=== PATIENT | male | born 1960 | race Caucasian/White ===

== ENCOUNTER 2021-08-17 13:51 | Inpatient (IN) | payer OTHER ==
[2021-08-17] MEDS ORDERED: METHOCARBAMOL 500 MG TABLET PO PRN (14:45)
[2021-08-17] MEDS ORDERED: MAG HYDROX/AL HYDROX/SIMETH 30 ML UNIT-DOSE CUP PO PRN (14:45)
[2021-08-17] MEDS ORDERED: methaDONE HCL 10 MG TABLET (FOR DETOX USE ONLY) PO ONE (14:45)
[2021-08-17] MEDS ORDERED: cloNIDine HCL 0.1 MG TABLET PO PRN (14:45)
[2021-08-17] MEDS ORDERED: ONDANSETRON *ODT* 4 MG TABLET SL PRN (14:45)
[2021-08-17] MEDS ORDERED: MAGNESIUM CITRATE 300 ML BOTTLE PO PRN (14:45)
[2021-08-17] MEDS ORDERED: NICOTINE 10 MG CARTRIDGE (INHALER) IH PRN (14:45)
[2021-08-17] MEDS ORDERED: MAGNESIUM HYDROX 2400MG/30ML ORAL SUSPENSION 30 ML CUP PO PRN (14:45)
[2021-08-17] MEDS ORDERED: chlordiazePOXIDE HCL 25 MG CAPSULE PO PRN (14:45)
[2021-08-17] MEDS ORDERED: ACETAMINOPHEN 325 MG TABLET (FP) PO PRN (14:45)
[2021-08-17] MEDS ORDERED: LOPERAMIDE HCL 2 MG CAPSULE PO PRN (14:45)
[2021-08-17] MEDS ORDERED: DICYCLOMINE HCL 10 MG CAPSULE PO PRN (14:45)
[2021-08-17] MEDS ORDERED: QUEtiapine FUMARATE 100 MG TABLET (FP) PO PRN (14:45)
[2021-08-17] MEDS ORDERED: BISMUTH SUBSALICYLATE 262 MG/15 ML BTL PO PRN (14:45)
[2021-08-17 15:23] VITALS: BMI 29.1
[2021-08-17] MEDS: chlordiazePOXIDE HCL 25 MG CAPSULE PO SCH ×2 (16:40→22:29)
[2021-08-17] MEDS: PRENATAL VITAMINS W/ FOLIC ACID TABLET (FP) PO SCH (16:42)
[2021-08-17] MEDS: NICOTINE 14 MG/24 HOURS TOPICAL PATCH TD SCH (16:43)
[2021-08-17] MEDS: hydrOXYzine PAMOATE 25 MG CAPSULE (FP) PO SCH ×2 (17:44→23:14)
[2021-08-17] MEDS ORDERED: MELATONIN 5 MG TABLETS PO SCH (22:00)
[2021-08-17] MEDS: THIAMINE HCL 100 MG TABLET (FP) PO SCH (22:30)
[2021-08-18] MEDS: BENZOCAINE/MENTHOL (CHLORASEPTIC ) LOZENGE MM PRN ×2 (01:01→11:20)
[2021-08-18] MEDS: chlordiazePOXIDE HCL 25 MG CAPSULE PO SCH (05:41)
[2021-08-18] MEDS: hydrOXYzine PAMOATE 25 MG CAPSULE (FP) PO SCH ×5 (05:42→22:19)
[2021-08-18] MEDS ORDERED: methaDONE HCL 10 MG TABLET (FOR DETOX USE ONLY) ONE (09:20)
[2021-08-18] MEDS: PRENATAL VITAMINS W/ FOLIC ACID TABLET (FP) PO SCH (10:22)
[2021-08-18] MEDS: IBUPROFEN 400 MG TABLET (FP) PO PRN ×2 (10:23→16:31)
[2021-08-18] MEDS: NICOTINE 14 MG/24 HOURS TOPICAL PATCH TD SCH (10:24)
[2021-08-18] MEDS ORDERED: diazePAM 5 MG TABLET PO PRN (10:55)
[2021-08-18] MEDS: diazePAM 5 MG TABLET PO SCH ×3 (11:20→22:20)
[2021-08-18 12:50] LABS: HEMATOCRIT 28.2 % (35.4-49); MCH 25.5 pg (25.7-33.7); MCHC 31.9 g/dl (32.0-35.9); MEAN CELL VOLUME 80.1 fl (80-96); MEAN PLT VOLUME 7.4 fl (7.5-11.1); PLATELET COUNT 323 10^3/uL (134-434); RBC 3.53 M/mm3 (4.00-5.60); RDW 19.5 % (11.9-15.9); WHITE BLOOD COUNT 7.5 K/mm3 (4.0-10.0)
[2021-08-18 13:01] LABS: ALBUMIN 3.2 g/dl (3.4-5.0); BLOOD UREA NITROGEN 18.2 mg/dL (7-18); CALCIUM 8.9 mg/dL (8.5-10.1)
[2021-08-18 13:05] LABS: CREATININE 0.8 mg/dL (0.55-1.3)
[2021-08-18 13:06] LABS: BILIRUBIN,TOTAL 0.3 mg/dL (0.2-1); TOT PROT 6.8 g/dl (6.4-8.2)
[2021-08-18] MEDS: ACETAMINOPHEN 325 MG TABLET (FP) PO PRN (14:55)
[2021-08-18] MEDS: guaiFENesin 200 MG/10 ML 10 ML UNIT-DOSE CUPS PO PRN ×2 (16:29→22:20)
[2021-08-18] MEDS ORDERED: ALBUTEROL SO4 HFA INHALER IH PRN (16:46)
[2021-08-18] MEDS ORDERED: ALBUTEROL SO4 0.083% IH SOL 2.5 MG/3 ML VIAL.NEB. NEB PRN (16:47)
[2021-08-18] MEDS ORDERED: predniSONE 20 MG TABLET (UD) PO ONE (18:00)
[2021-08-18] MEDS ORDERED: IBUPROFEN 400 MG TABLET (FP) PO ONE (18:41)
[2021-08-18] MEDS: QUEtiapine FUMARATE 200 MG TABLET PO SCH (22:19)
[2021-08-18] MEDS: DIVALPROEX SODIUM 500 MG TABLET E.C. PO SCH (22:19)
[2021-08-18] MEDS: THIAMINE HCL 100 MG TABLET (FP) PO SCH (22:19)
[2021-08-18] MEDS: BUDESONIDE/FORMETEROL FUMARATE 160/4.5 mcg INHALER IH SCH (23:43)
[2021-08-19] MEDS ORDERED: chlordiazePOXIDE HCL 25 MG CAPSULE PO SCH (05:00)
[2021-08-19] MEDS: hydrOXYzine PAMOATE 25 MG CAPSULE (FP) PO SCH ×5 (05:36→22:19)
[2021-08-19] MEDS: diazePAM 5 MG TABLET PO SCH ×4 (05:36→22:20)
[2021-08-19] MEDS: ACETAMINOPHEN 325 MG TABLET (FP) PO PRN (05:37)
[2021-08-19] MEDS ORDERED: predniSONE 20 MG TABLET (UD) PO ONE (10:00)
[2021-08-19] MEDS ORDERED: methaDONE HCL 10 MG TABLET (FOR DETOX USE ONLY) PO ONE (10:00)
[2021-08-19] MEDS: BUDESONIDE/FORMETEROL FUMARATE 160/4.5 mcg INHALER IH SCH ×2 (10:15→22:19)
[2021-08-19] MEDS: NICOTINE 14 MG/24 HOURS TOPICAL PATCH TD SCH (10:15)
[2021-08-19] MEDS: PRENATAL VITAMINS W/ FOLIC ACID TABLET (FP) PO SCH (10:15)
[2021-08-19 14:08] LABS: SARS-CoV-2 NAA Not Detected (Not Detected)
[2021-08-19] MEDS: PANTOPRAZOLE 40 MG TABLET PO SCH (16:49)
[2021-08-19] MEDS: THIAMINE HCL 100 MG TABLET (FP) PO SCH (22:18)
[2021-08-19] MEDS: DIVALPROEX SODIUM 500 MG TABLET E.C. PO SCH (22:19)
[2021-08-19] MEDS: QUEtiapine FUMARATE 200 MG TABLET PO SCH (22:19)
[2021-08-20] MEDS ORDERED: chlordiazePOXIDE HCL 10 MG CAPSULE PO PRN
[2021-08-20] MEDS ORDERED: chlordiazePOXIDE HCL 10 MG CAPSULE PO SCH (05:00)
[2021-08-20] MEDS: hydrOXYzine PAMOATE 25 MG CAPSULE (FP) PO SCH ×2 (05:24→10:37)
[2021-08-20] MEDS: IBUPROFEN 400 MG TABLET (FP) PO PRN (05:26)
[2021-08-20] MEDS ORDERED: diazePAM 5 MG TABLET PO SCH (06:00)
[2021-08-20] MEDS: BUDESONIDE/FORMETEROL FUMARATE 160/4.5 mcg INHALER IH SCH (08:40)
[2021-08-20] MEDS ORDERED: methaDONE HCL 10 MG TABLET (FOR DETOX USE ONLY) ONE (09:28)
[2021-08-20] MEDS ORDERED: predniSONE 10 MG TABLET (UD) PO ONE (10:00)
[2021-08-20] MEDS: PANTOPRAZOLE 40 MG TABLET PO SCH (10:37)
[2021-08-20] MEDS: PRENATAL VITAMINS W/ FOLIC ACID TABLET (FP) PO SCH (10:39)
[2021-08-20] MEDS: NICOTINE 14 MG/24 HOURS TOPICAL PATCH TD SCH (10:39)
[2021-08-20 14:07] VITALS: BP 155/99; PULSE 76; TEMP 98.2
[2021-08-21] MEDS ORDERED: chlordiazePOXIDE HCL 10 MG CAPSULE PO SCH (05:00)
[2021-08-21] MEDS ORDERED: diazePAM 5 MG TABLET PO SCH (06:00)
[2021-08-21] MEDS ORDERED: methaDONE HCL 10 MG TABLET (FOR DETOX USE ONLY) PO ONE (10:00)
[2021-08-21] MEDS ORDERED: predniSONE 20 MG TABLET (UD) PO ONE (10:00)
[2021-08-22] MEDS ORDERED: chlordiazePOXIDE HCL 10 MG CAPSULE PO ONE (05:00)
[2021-08-22] MEDS ORDERED: predniSONE 10 MG TABLET (UD) PO ONE (06:00)
[2021-08-22] MEDS ORDERED: diazePAM 5 MG TABLET PO ONE (06:00)
== END 2021-08-20 13:45 | disposition left against medical advice (07) | DRG 770 ==
LOC: YASAS 13:51 → Y6N 15:35
PROVIDERS: ADMIT Allergy & Immunology; ATTEND Allergy & Immunology
PROC: HZ2ZZZZ Detoxification Services for Substance Abuse Treatment (ICD-10-PCS; principal; 2021-08-17)
DX: F11.23 Opioid dependence with withdrawal (principal); F10.230 Alcohol dependence with withdrawal, uncomplicated; F14.20 Cocaine dependence, uncomplicated; F17.210 Nicotine dependence, cigarettes, uncomplicated; F19.282 Other psychoactive substance dependence with psychoactive substance-induced sleep disorder; F32.A Depression, unspecified; D64.9 Anemia, unspecified; K21.9 Gastro-esophageal reflux disease without esophagitis; M17.12 Unilateral primary osteoarthritis, left knee; R60.0 Localized edema
CPT/HCPCS: 36415; 71045-TC-FY; 80053; 85027; 86780; 87811; 93005; 93010; C9803-CS; Q0162; U0003; U0005